=== PATIENT | female | born 1940 | race Caucasian/White ===

== ENCOUNTER → 2017-12-14 | Outpatient (CLI) | payer OTHER, BC ==
[~2017-12-14] MED LIST: ACETAMINOPHEN650 M5; ADULT LOW DOSE81 MG PO; AGGRENOX 25 MG1 EACH PO; ALEVE220 MG PO; AMOXICILLIN500 M1 PO; ATORVASTATIN CA40 MG PO; BAYER ADVANCED500 MG PO; CELEXA 20 MG TA20 M1 PO; CELEXA20 MG PO; COLACE100 MG PO; DITROPAN XL10 M1 PO; FAMOTIDINE20 MG PO; HYDROCHLOROTHIA25 M2 PO; HYDROCODONE-AP1 EAC6 PO; KLOR-CON 10 ER10 MEQ PO; LOSARTAN POTASS25 MG PO; NORCO 5-325 TA1 EACH PO; OMEGA 3-6-9 CO1 EACH PO; OMEPRAZOLE20 M2 PO; OXYCONTIN10 M1 PO; PAIN & FEVER500 MG PO; PAIN RELIEVER500 M3 PO; POTASSIUM20 PO; RA FISH OIL 1,1 EAC2 PO; ROBAXIN 750 MG750 M1 PO; SENNA8.6 MG PO; SIMVASTATIN40 MG PO; VALACYCLOVIR1000 MG PO; VITAMIN D1000 UNI1 PO; VITAMIN D32000 UNIT PO
== END | disposition home or self-care (01) ==
LOC: RAD 06:23
DX: M19.012 Primary osteoarthritis, left shoulder (principal)